=== PATIENT | female | born 1965 | race Two or more races ===

== ENCOUNTER 2018-08-27 07:48 | Emergency (ER) | payer OTHER | END 2018-08-28 00:42 | disposition short-term general hospital (02) | LOC: JER 08-28 00:42 ==

== ENCOUNTER 2019-06-16 16:56 | Inpatient (IN) | payer OTHER ==
--- NOTE | 2019-06-16 20:02 | BHS.RME ---
Substance Use & Tx History - Last Treatment Where was last treatment: Detox CIWA Nausea/Vomitin (vomiting x 3) Muscle Tremors: 4-Moderate,w/Arms Extend Anxiety: 3 Agitation: 0-Normal Activity Paroxysmal Sweats: No Perspiration Orientation: 0-Oriented Tacttile Disturbances: 0-None Auditory Disturbances: 0-None Visual Disturbances: 0-None Headache: 3-Moderate CIWA-Ar Total Score: 13
[2019-06-16 20:41] VITALS: BMI 25.1
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
[2019-06-16] MEDS ORDERED: MAG HYDROX/AL HYDROX/SIMETH 30 ML UNIT-DOSE CUP PO PRN (23:31)
[2019-06-16] MEDS ORDERED: IBUPROFEN 400 MG TABLET (FP) PO PRN (23:31)
[2019-06-16] MEDS ORDERED: NICOTINE POLACRILEX 2 MG GUM BUC PRN (23:31)
[2019-06-16] MEDS ORDERED: MAGNESIUM HYDROX 2400MG/30ML ORAL SUSPENSION 30 ML CUP PO PRN (23:31)
[2019-06-16] MEDS ORDERED: ACETAMINOPHEN 325 MG TABLET (FP) PO PRN ×2 (23:31)
[2019-06-16] MEDS ORDERED: MAGNESIUM CITRATE 300 ML BOTTLE PO PRN (23:31)
[2019-06-16] MEDS ORDERED: ONDANSETRON *ODT* 4 MG TABLET SL ONE (23:31)
[2019-06-16] MEDS ORDERED: MENTHOL/PHENOL 1 EACH UD MM PRN (23:31)
[2019-06-16] MEDS ORDERED: ALBUTEROL SO4 0.083% IH SOL 2.5 MG/3 ML VIAL.NEB. NEB ONE (23:58)
[2019-06-17] MEDS ORDERED: chlordiazePOXIDE HCL 25 MG CAPSULE PO ONE
[2019-06-17] MEDS: ALBUTEROL SO4 2.5/IPRATROPIUM 0.5 INH SOL 3 ML VIAL.NEB. NEB SCH ×3 (00:04→21:22)
[2019-06-17] MEDS: guaiFENesin 200 MG/10 ML 10 ML UNIT-DOSE CUPS PO SCH ×5 (00:16→22:46)
[2019-06-17] MEDS: chlordiazePOXIDE HCL 25 MG CAPSULE PO SCH ×3 (06:07→21:22)
[2019-06-17] MEDS ORDERED: BISMUTH SUBSALICYLATE 262 MG/15 ML BTL PO ONE (07:30)
[2019-06-17] MEDS: AMOX TR/POT CLAV 875MG/125MG TABLETS (FP) PO SCH ×2 (08:02→16:57)
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
[2019-06-17] MEDS: SERTRALINE HCL 50 MG TABLET (FP) PO SCH (10:04)
[2019-06-17] MEDS: NICOTINE 14 MG/24 HOURS TOPICAL PATCH TD SCH (10:05)
[2019-06-17] MEDS: PRENATAL VITAMINS W/ FOLIC ACID TABLET (FP) PO SCH (10:05)
[2019-06-17 10:20] LABS: HEMATOCRIT 40.3 % (32.4-45.2); HEMOGLOBIN 13.4 GM/dL (10.7-15.3); MCH 29.3 pg (25.7-33.7); MCHC 33.2 g/dl (32.0-36.0); MEAN CELL VOLUME 88.3 fl (80-96); MEAN PLT VOLUME 9.2 fl (7.5-11.1); PLATELET COUNT 252 K/MM3 (134-434); RBC 4.57 M/mm3 (3.60-5.2); RDW 14.3 % (11.6-15.6); WHITE BLOOD COUNT 4.7 K/mm3 (4.0-10.0)
[2019-06-17 10:31] LABS: ALBUMIN 3.3 g/dl (3.4-5.0); BILIRUBIN,TOTAL 0.7 mg/dL (0.2-1); BLOOD UREA NITROGEN 17.8 mg/dL (7-18); CALCIUM 8.6 mg/dL (8.5-10.1); CREATININE 0.8 mg/dL (0.55-1.3); POTASSIUM 3.5 mmol/L (3.5-5.1); TOT PROT 7.7 g/dl (6.4-8.2)
--- NOTE | 2019-06-17 10:35 | EKG ---
Test Reason : Blood Pressure : / mmHG Vent. Rate : 098 BPM Atrial Rate : 098 BPM P-R Int : 138 ms QRS Dur : 080 ms QT Int : 364 ms P-R-T Axes : 065 070 064 degrees QTc Int : 464 ms NORMAL SINUS RHYTHM RIGHT ATRIAL ENLARGEMENT NONSPECIFIC ST ABNORMALITY ABNORMAL ECG WHEN COMPARED WITH ECG OF 27-AUG-2018 09:02, NO SIGNIFICANT CHANGE WAS FOUND Confirmed by Ronny Butler MD ([id number]) on 06/17/2019 10:35:16 AM Referred By: Dutch Ruiz Confirmed By:Ronny Butler MD
[2019-06-17] MEDS: ARIPiprazole 5 MG TABLET PO SCH (10:54)
--- NOTE | 2019-06-17 13:29 | PN ---
[facility] CIWA - CIWA Score Nausea/Vomitin-No Nausea/No Vomiting Muscle Tremors: 3 Anxiety: 3 Agitation: 3 Paroxysmal Sweats: 3 Orientation: 0-Oriented Tacttile Disturbances: 0-None Auditory Disturbances: 0-None Visual Disturbances: 0-None Headache: 1-Very Mild CIWA-Ar Total Score: 13 S Progress Note (SOAP) Subjective: sweats shakes interrupted sleep headache nausea Objective: 06/17/19 13:28 Vital Signs Temperature 98.7 F 06/17/19 09:05 Pulse Rate 84 06/17/19 09:05 Respiratory Rate 19 06/17/19 09:05 Blood Pressure 128/84 06/17/19 09:05 O2 Sat by Pulse Oximetry (%) Laboratory Tests 06/16/19 06/17/19 06/17/19 21:41 07:30 07:30 WBC 4.7 RBC 4.57 Hgb 13.4 Hct 40.3 MCV 88.3 MCH 29.3 MCHC 33.2 RDW 14.3 Plt Count 252 MPV 9.2 Sodium 137 Potassium 3.5 Chloride 103 Carbon Dioxide 28 Anion Gap 5 L BUN 17.8 Creatinine 0.8 Est GFR (CKD-EPI)AfAm 97.55 Est GFR (CKD-EPI)NonAf 84.17 Random Glucose 100 Calcium 8.6 Total Bilirubin 0.7 AST 19 ALT 19 Alkaline Phosphatase 73 Total Protein 7.7 Albumin 3.3 L POC Urine HCG, Qual Negative RPR Titer 06/17/19 07:30 WBC RBC Hgb Hct MCV MCH MCHC RDW Plt Count MPV Sodium Potassium Chloride Carbon Dioxide Anion Gap BUN Creatinine Est GFR (CKD-EPI)AfAm Est GFR (CKD-EPI)NonAf Random Glucose Calcium Total Bilirubin AST ALT Alkaline Phosphatase Total Protein Albumin POC Urine HCG, Qual RPR Titer Nonreactive aaox3 ambulating no acute distress Assessment: 06/17/19 13:28 withdrawals Plan: continue detox tylenol/motrin prn zofran sl prn
[2019-06-17] MEDS ORDERED: METHOCARBAMOL 500 MG TABLET PO ONE (15:31)
[2019-06-17] MEDS ORDERED: LOPERAMIDE HCL 2 MG CAPSULE PO PRN (15:32)
[2019-06-17] MEDS: chlordiazePOXIDE HCL 10 MG CAPSULE PO PRN (16:57)
[2019-06-17] MEDS ORDERED: METHOCARBAMOL 500 MG TABLET PO SCH (18:00)
[2019-06-17] MEDS: traZODone HCL 100 MG TABLET (FP) PO SCH (21:22)
[2019-06-17] MEDS: THIAMINE HCL 100 MG TABLET (FP) PO SCH (21:22)
[2019-06-17] MEDS: MELATONIN 5 MG TABLETS PO SCH (22:45)
[2019-06-18] MEDS: chlordiazePOXIDE 5 MG CAPSULE PO SCH ×3 (05:52→22:00)
[2019-06-18] MEDS: guaiFENesin 200 MG/10 ML 10 ML UNIT-DOSE CUPS PO SCH ×4 (05:53→22:58)
[2019-06-18] MEDS: AMOX TR/POT CLAV 875MG/125MG TABLETS (FP) PO SCH ×2 (07:28→17:11)
[2019-06-18] MEDS: ALBUTEROL SO4 2.5/IPRATROPIUM 0.5 INH SOL 3 ML VIAL.NEB. NEB SCH (07:30)
[2019-06-18] MEDS: PRENATAL VITAMINS W/ FOLIC ACID TABLET (FP) PO SCH (10:25)
[2019-06-18] MEDS: NICOTINE 14 MG/24 HOURS TOPICAL PATCH TD SCH (10:26)
[2019-06-18] MEDS: ARIPiprazole 5 MG TABLET PO SCH (10:26)
[2019-06-18] MEDS: SERTRALINE HCL 50 MG TABLET (FP) PO SCH (10:26)
[2019-06-18] MEDS: ALBUTEROL SO4 2.5/IPRATROPIUM 0.5 INH SOL 3 ML VIAL.NEB. NEB PRN ×2 (11:27→21:45)
--- NOTE | 2019-06-18 11:54 | PN ---
S CIWA - CIWA Score Nausea/Vomitin-No Nausea/No Vomiting Muscle Tremors: 3 Anxiety: 2 Agitation: 2 Paroxysmal Sweats: 2 Orientation: 0-Oriented Tacttile Disturbances: 0-None Auditory Disturbances: 0-None Visual Disturbances: 0-None Headache: 0-None Present CIWA-Ar Total Score: 9 BHS Progress Note (SOAP) Subjective: sweats interrupted sleep body aches Objective: 06/18/19 11:53 Vital Signs Temperature 98.2 F 06/18/19 08:41 Pulse Rate 98 H 06/18/19 08:41 Respiratory Rate 18 06/18/19 08:41 Blood Pressure 143/98 06/18/19 08:41 O2 Sat by Pulse Oximetry (%) Laboratory Tests 06/16/19 06/17/19 06/17/19 21:41 07:30 07:30 WBC 4.7 RBC 4.57 Hgb 13.4 Hct 40.3 MCV 88.3 MCH 29.3 MCHC 33.2 RDW 14.3 Plt Count 252 MPV 9.2 Sodium 137 Potassium 3.5 Chloride 103 Carbon Dioxide 28 Anion Gap 5 L BUN 17.8 Creatinine 0.8 Est GFR (CKD-EPI)AfAm 97.55 Est GFR (CKD-EPI)NonAf 84.17 Random Glucose 100 Calcium 8.6 Total Bilirubin 0.7 AST 19 ALT 19 Alkaline Phosphatase 73 Total Protein 7.7 Albumin 3.3 L POC Urine HCG, Qual Negative RPR Titer 06/17/19 07:30 WBC RBC Hgb Hct MCV MCH MCHC RDW Plt Count MPV Sodium Potassium Chloride Carbon Dioxide Anion Gap BUN Creatinine Est GFR (CKD-EPI)AfAm Est GFR (CKD-EPI)NonAf Random Glucose Calcium Total Bilirubin AST ALT Alkaline Phosphatase Total Protein Albumin POC Urine HCG, Qual RPR Titer Nonreactive aaox3 ambulating no acute distress Assessment: 06/18/19 11:53 withdrawals sx Plan: continue detox increase fluids
[2019-06-18] MEDS: chlordiazePOXIDE HCL 10 MG CAPSULE PO PRN (17:11)
[2019-06-18] MEDS: hydrOXYzine PAMOATE 50 MG CAPSULE (FP) PO PRN (20:14)
[2019-06-18] MEDS: traZODone HCL 100 MG TABLET (FP) PO SCH (22:00)
[2019-06-18] MEDS: THIAMINE HCL 100 MG TABLET (FP) PO SCH (22:01)
[2019-06-18] MEDS: METHOCARBAMOL 500 MG TABLET PO PRN (22:06)
[2019-06-18] MEDS: MELATONIN 5 MG TABLETS PO SCH (22:43)
[2019-06-19] MEDS ORDERED: chlordiazePOXIDE HCL 10 MG CAPSULE PO PRN
[2019-06-19] MEDS: chlordiazePOXIDE HCL 10 MG CAPSULE PO SCH ×3 (07:49→21:11)
[2019-06-19] MEDS: AMOX TR/POT CLAV 875MG/125MG TABLETS (FP) PO SCH ×2 (07:50→17:35)
[2019-06-19] MEDS: guaiFENesin 200 MG/10 ML 10 ML UNIT-DOSE CUPS PO SCH ×3 (07:50→18:22)
--- NOTE | 2019-06-19 10:18 | PN ---
S CIWA - CIWA Score Nausea/Vomitin-No Nausea/No Vomiting Muscle Tremors: 2 Anxiety: 1-Mildly Anxious Agitation: 1-Slight > Activity Paroxysmal Sweats: 1-Minimal Palms Moist Orientation: 0-Oriented Tacttile Disturbances: 0-None Auditory Disturbances: 0-None Visual Disturbances: 0-None Headache: 0-None Present CIWA-Ar Total Score: 5 BHS Progress Note (SOAP) Subjective: interrupted sleep Objective: 06/19/19 10:16 Vital Signs Temperature 97.7 F 06/19/19 07:58 Pulse Rate 75 06/19/19 07:58 Respiratory Rate 18 06/19/19 07:58 Blood Pressure 147/77 06/19/19 07:58 O2 Sat by Pulse Oximetry (%) aaox3 ambulating no acute distress Assessment: 06/19/19 10:17 mild withdrawals Plan: continue detox melatonin prn tonight d/c in am
[2019-06-19] MEDS: SERTRALINE HCL 50 MG TABLET (FP) PO SCH (10:24)
[2019-06-19] MEDS: PRENATAL VITAMINS W/ FOLIC ACID TABLET (FP) PO SCH (10:24)
[2019-06-19] MEDS: ARIPiprazole 5 MG TABLET PO SCH (10:25)
[2019-06-19] MEDS: NICOTINE 14 MG/24 HOURS TOPICAL PATCH TD SCH (11:37)
[2019-06-19] MEDS: METHOCARBAMOL 500 MG TABLET PO PRN (20:02)
[2019-06-19] MEDS: ALBUTEROL SO4 2.5/IPRATROPIUM 0.5 INH SOL 3 ML VIAL.NEB. NEB PRN (20:13)
[2019-06-19] MEDS: THIAMINE HCL 100 MG TABLET (FP) PO SCH (22:20)
[2019-06-19] MEDS: traZODone HCL 100 MG TABLET (FP) PO SCH (22:20)
[2019-06-19] MEDS: MELATONIN 5 MG TABLETS PO SCH (22:20)
[2019-06-20] MEDS ORDERED: chlordiazePOXIDE HCL 10 MG CAPSULE PO ONE (05:00)
[2019-06-20] MEDS: AMOX TR/POT CLAV 875MG/125MG TABLETS (FP) PO SCH (07:59)
[2019-06-20] MEDS: hydrOXYzine PAMOATE 50 MG CAPSULE (FP) PO PRN (07:59)
--- NOTE | 2019-06-20 09:23 | DS ---
[facility] Detox Discharge Summary Admission Date: 06/16/19 Discharge Date: 06/20/19 - History Present History: Alcohol Dependence, Cannabis Dependence, Cocaine Dependence, Opioid Dependence - Physical Exam Results Vital Signs: Vital Signs Temperature 97.7 F 06/20/19 06:33 Pulse Rate 66 06/20/19 06:33 Respiratory Rate 16 06/20/19 06:33 Blood Pressure 120/78 06/20/19 06:33 O2 Sat by Pulse Oximetry (%) Pertinent Admission Physical Exam Findings: Vital Signs Temperature 97.7 F 06/20/19 06:33 Pulse Rate 66 06/20/19 06:33 Respiratory Rate 16 06/20/19 06:33 Blood Pressure 120/78 06/20/19 06:33 O2 Sat by Pulse Oximetry (%) Laboratory Tests 06/16/19 06/17/19 06/17/19 21:41 07:30 07:30 WBC 4.7 RBC 4.57 Hgb 13.4 Hct 40.3 MCV 88.3 MCH 29.3 MCHC 33.2 RDW 14.3 Plt Count 252 MPV 9.2 Sodium 137 Potassium 3.5 Chloride 103 Carbon Dioxide 28 Anion Gap 5 L BUN 17.8 Creatinine 0.8 Est GFR (CKD-EPI)AfAm 97.55 Est GFR (CKD-EPI)NonAf 84.17 Random Glucose 100 Calcium 8.6 Total Bilirubin 0.7 AST 19 ALT 19 Alkaline Phosphatase 73 Total Protein 7.7 Albumin 3.3 L POC Urine HCG, Qual Negative RPR Titer 06/17/19 07:30 WBC RBC Hgb Hct MCV MCH MCHC RDW Plt Count MPV Sodium Potassium Chloride Carbon Dioxide Anion Gap BUN Creatinine Est GFR (CKD-EPI)AfAm Est GFR (CKD-EPI)NonAf Random Glucose Calcium Total Bilirubin AST ALT Alkaline Phosphatase Total Protein Albumin POC Urine HCG, Qual RPR Titer Nonreactive aaox3 ambulating no acute distress lungs CTA - Treatment Hospital Course: Detox Protocol Followed, Detoxed Safely, Responded well, Discharged Condition Good, Rehab Referral Accepted - Medication Discharge Medications: Ambulatory Orders Baclofen [Lioresal -] 20 mg PO TID 08/27/18 Omeprazole 40 mg PO DAILY 08/27/18 Aripiprazole [Abilify -] 5 mg PO DAILY 06/16/19 hydrOXYzine PAMOATE [Vistaril -] 50 mg PO TID 06/16/19 propRANOLol HCL [Inderal] 20 mg PO DAILY 06/16/19 traZODone HCL [Trazodone HCl] 100 mg PO HS 06/16/19 - Diagnosis (1) Alcohol dependence with withdrawal, uncomplicated Current Visit: Yes Status: Chronic (2) Cannabis dependence Current Visit: Yes Status: Chronic (3) Cocaine dependence, uncomplicated Current Visit: Yes Status: Chronic (4) Opioid abuse Current Visit: Yes Status: Acute (5) Substance-induced sleep disorder Current Visit: Yes Status: Acute (6) Wheezing on expiration Current Visit: Yes Status: Chronic (7) Bipolar disorder Current Visit: Yes Status: Chronic (8) HTN (hypertension) Current Visit: Yes Status: Chronic Qualifiers: Hypertension type: unspecified Qualified Code(s): I10 - Essential (primary) hypertension (9) Murmur, cardiac Current Visit: Yes Status: Chronic (10) Nicotine dependence Current Visit: Yes Status: Chronic Qualifiers: Nicotine product type: cigarettes Substance use status: uncomplicated Qualified Code(s): F17.210 - Nicotine dependence, cigarettes, uncomplicated (11) Nicotine dependence, unspecified, uncomplicated Current Visit: Yes Status: Chronic Qualifiers: Nicotine product type: cigarettes Qualified Code(s): F17.210 - Nicotine de pendence, cigarettes, uncomplicated (12) History of CVA with residual deficit Current Visit: Yes Status: Resolved (13) History of hand fracture Current Visit: Yes Status: Resolved (14) Depression Current Visit: No Status: Acute Qualifiers: Depression Type: unspecified Qualified Code(s): F32.9 - Major depressive disorder, single episode, unspecified (15) Suicidal ideation Current Visit: No Status: Acute - AMA Did Patient Leave Against Medical Advice: No
[2019-06-20] MEDS: ARIPiprazole 5 MG TABLET PO SCH (10:38)
[2019-06-20] MEDS: PRENATAL VITAMINS W/ FOLIC ACID TABLET (FP) PO SCH (10:38)
[2019-06-20] MEDS: NICOTINE 14 MG/24 HOURS TOPICAL PATCH TD SCH (10:38)
[2019-06-20] MEDS: METHOCARBAMOL 500 MG TABLET PO PRN (10:39)
[2019-06-20] MEDS: SERTRALINE HCL 50 MG TABLET (FP) PO SCH (10:39)
[2019-06-20 11:29] VITALS: BP 121/84; PULSE 87; TEMP 97.3
== END 2019-06-20 16:00 | disposition home or self-care (01) | DRG 897 ==
LOC: YASAS 16:56 → Y6N 22:21
PROVIDERS: ADMIT Allergy & Immunology; ATTEND Allergy & Immunology
PROC: HZ2ZZZZ Detoxification Services for Substance Abuse Treatment (ICD-10-PCS; principal; 2019-06-16)
DX: F10.230 Alcohol dependence with withdrawal, uncomplicated (principal); F11.20 Opioid dependence, uncomplicated; F14.20 Cocaine dependence, uncomplicated; F19.282 Other psychoactive substance dependence with psychoactive substance-induced sleep disorder; F17.210 Nicotine dependence, cigarettes, uncomplicated; F31.9 Bipolar disorder, unspecified; F41.9 Anxiety disorder, unspecified; I10 Essential (primary) hypertension; E78.5 Hyperlipidemia, unspecified; G40.909 Epilepsy, unspecified, not intractable, without status epilepticus; R01.1 Cardiac murmur, unspecified; R00.1 Bradycardia, unspecified; Z86.79 Personal history of other diseases of the circulatory system; Z87.821 Personal history of retained foreign body fully removed; Z86.69 Personal history of other diseases of the nervous system and sense organs; Z59.0 Homelessness; Z91.410 Personal history of adult physical and sexual abuse; Z62.810 Personal history of physical and sexual abuse in childhood; Z88.6 Allergy status to analgesic agent
CPT/HCPCS: 36415; 71046-TC-FY; 80053; 81025; 85027; 86593; 93005; 93010; 94640

== ENCOUNTER 2020-05-07 17:54 | Inpatient (IN) | payer OTHER ==
[2020-05-07 18:57] VITALS: BMI 23.1
[2020-05-07] MEDS ORDERED: cloNIDine HCL 0.1 MG TABLET PO PRN (21:37)
[2020-05-07] MEDS ORDERED: DICYCLOMINE HCL 10 MG CAPSULE PO PRN (21:37)
[2020-05-07] MEDS ORDERED: MAG HYDROX/AL HYDROX/SIMETH 30 ML UNIT-DOSE CUP PO PRN (21:37)
[2020-05-07] MEDS ORDERED: guaiFENesin 200 MG/10 ML 10 ML UNIT-DOSE CUPS PO PRN (21:37)
[2020-05-07] MEDS ORDERED: MAGNESIUM CITRATE 300 ML BOTTLE PO PRN (21:37)
[2020-05-07] MEDS ORDERED: ACETAMINOPHEN 325 MG TABLET (FP) PO PRN (21:37)
[2020-05-07] MEDS ORDERED: BISMUTH SUBSALICYLATE 524 MG/30 ML UD PO PRN (21:37)
[2020-05-07] MEDS ORDERED: NICOTINE POLACRILEX 2 MG GUM BUC PRN (21:37)
[2020-05-07] MEDS ORDERED: METHADONE HCL 10 MG TABLET (FOR DETOX USE ONLY) PO ONE (21:37)
[2020-05-07] MEDS ORDERED: IBUPROFEN 400 MG TABLET (FP) PO PRN (21:37)
[2020-05-07] MEDS ORDERED: hydrOXYzine PAMOATE 25 MG CAPSULE (FP) PO PRN (21:37)
[2020-05-07] MEDS ORDERED: P-EPHED 60MG/TRIPROLIDI 2.5MG TABLET PO PRN (21:37)
[2020-05-07] MEDS ORDERED: NALOXONE HCL 0.4 MG/ML VIAL IM PRN (21:37)
[2020-05-07] MEDS ORDERED: MENTHOL/PHENOL 1 EACH UD MM PRN (21:37)
[2020-05-07] MEDS: THIAMINE HCL 100 MG TABLET (FP) PO SCH (23:43)
[2020-05-07] MEDS: MELATONIN 5 MG TABLETS PO SCH (23:46)
[2020-05-08] MEDS ORDERED: METHADONE HCL 10 MG TABLET (FOR DETOX USE ONLY) ONE (09:00)
[2020-05-08] MEDS ORDERED: METHADONE HCL 5 MG TABLET (FOR DETOX USE ONLY) ONE (09:00)
[2020-05-08] MEDS ORDERED: METHADONE (DETOX) 20 MG, METHADONE (DETOX) 5 MG PO ONE (10:00)
[2020-05-08] MEDS: PRENATAL VITAMINS W/ FOLIC ACID TABLET (FP) PO SCH (10:10)
[2020-05-08] MEDS: NICOTINE 14 MG/24 HOURS TOPICAL PATCH TD SCH (10:12)
[2020-05-08] MEDS ORDERED: PATIENT'S OWN MEDICATION (NON-FORMULARY) (Sertraline Hcl [Sertraline Hcl] 100 MG Tablet) PO SCH (10:30)
[2020-05-08] MEDS: ONDANSETRON *ODT* 4 MG TABLET SL PRN (11:02)
[2020-05-08] MEDS: hydrOXYzine PAMOATE 50 MG CAPSULE (FP) PO PRN ×2 (12:06→22:10)
[2020-05-08] MEDS: SERTRALINE HCL 50 MG TABLET (FP) PO SCH (12:06)
[2020-05-08 13:30] LABS: POTASSIUM 4.6 mmol/L (3.5-5.1)
[2020-05-08 13:32] LABS: ALBUMIN 3.4 g/dl (3.4-5.0); BLOOD UREA NITROGEN 15.3 mg/dL (7-18); CALCIUM 8.9 mg/dL (8.5-10.1)
[2020-05-08 13:33] LABS: HEMATOCRIT 38.5 % (32.4-45.2); HEMOGLOBIN 13.1 GM/dL (10.7-15.3); MCH 31.8 pg (25.7-33.7); MCHC 34.1 g/dl (32.0-36.0); MEAN CELL VOLUME 93.1 fl (80-96); MEAN PLT VOLUME 9.9 fl (7.5-11.1); PLATELET COUNT 261 K/MM3 (134-434); RBC 4.13 M/mm3 (3.60-5.2); RDW 12.8 % (11.6-15.6); WHITE BLOOD COUNT 5.4 K/mm3 (4.0-10.0)
[2020-05-08 13:35] LABS: CREATININE 0.9 mg/dL (0.55-1.3)
[2020-05-08 13:37] LABS: BILIRUBIN,TOTAL 0.2 mg/dL (0.2-1); TOT PROT 6.6 g/dl (6.4-8.2)
[2020-05-08] MEDS: traZODone HCL 150 MG TABLET PO SCH (22:08)
[2020-05-08] MEDS: ARIPiprazole 5 MG TABLET PO SCH (22:08)
[2020-05-08] MEDS: MELATONIN 5 MG TABLETS PO SCH (22:08)
[2020-05-08] MEDS: THIAMINE HCL 100 MG TABLET (FP) PO SCH (22:08)
[2020-05-08 23:07] LABS: URINE APPEARANCE CLEAR; URINE BILIRUBIN NEGATIVE (NEGATIVE); URINE COLOR YELLOW; URINE GLUCOSE (UA) NEGATIVE (NEGATIVE); URINE KETONE NEGATIVE (NEGATIVE); URINE LEUK ESTERASE NEGATIVE (NEGATIVE); URINE NITRITE NEGATIVE (NEGATIVE); URINE PROTEIN NEGATIVE (NEGATIVE); URINE UROBILINOGEN 0.2 mg/dL (0.2-1.0)
[2020-05-09] MEDS: hydrOXYzine PAMOATE 50 MG CAPSULE (FP) PO PRN ×3 (05:57→22:12)
[2020-05-09] MEDS: ONDANSETRON *ODT* 4 MG TABLET SL PRN (09:10)
[2020-05-09] MEDS: NICOTINE 14 MG/24 HOURS TOPICAL PATCH TD SCH (09:47)
[2020-05-09] MEDS: PRENATAL VITAMINS W/ FOLIC ACID TABLET (FP) PO SCH (09:47)
[2020-05-09] MEDS: MONTELUKAST NA 10 MG TABLET PO SCH (09:48)
[2020-05-09] MEDS: SERTRALINE HCL 50 MG TABLET (FP) PO SCH (09:48)
[2020-05-09] MEDS ORDERED: METHADONE HCL 10 MG TABLET (FOR DETOX USE ONLY) PO ONE (10:00)
[2020-05-09] MEDS: METHOCARBAMOL 500 MG TABLET PO PRN (12:52)
[2020-05-09] MEDS: MAGNESIUM HYDROX 2400MG/30ML ORAL SUSPENSION 30 ML CUP PO PRN (17:31)
[2020-05-09] MEDS: traZODone HCL 150 MG TABLET PO SCH (22:10)
[2020-05-09] MEDS: ATORVASTATIN CA 20 MG TABLET (FP) PO SCH (22:10)
[2020-05-09] MEDS: ARIPiprazole 5 MG TABLET PO SCH (22:10)
[2020-05-09] MEDS: THIAMINE HCL 100 MG TABLET (FP) PO SCH (22:10)
[2020-05-09] MEDS: MELATONIN 5 MG TABLETS PO SCH (22:11)
[2020-05-10] MEDS: METHOCARBAMOL 500 MG TABLET PO PRN ×3 (07:28→22:05)
[2020-05-10] MEDS: ACETAMINOPHEN 325 MG TABLET (FP) PO PRN (07:29)
[2020-05-10] MEDS: ALBUTEROL SO4 HFA INHALER IH PRN (08:15)
[2020-05-10] MEDS ORDERED: METHADONE HCL 10 MG TABLET (FOR DETOX USE ONLY) ONE (08:22)
[2020-05-10] MEDS ORDERED: METHADONE HCL 5 MG TABLET (FOR DETOX USE ONLY) ONE (08:23)
[2020-05-10] MEDS: PRENATAL VITAMINS W/ FOLIC ACID TABLET (FP) PO SCH (09:22)
[2020-05-10] MEDS: NICOTINE 14 MG/24 HOURS TOPICAL PATCH TD SCH (09:23)
[2020-05-10] MEDS: SERTRALINE HCL 50 MG TABLET (FP) PO SCH (09:24)
[2020-05-10] MEDS: MONTELUKAST NA 10 MG TABLET PO SCH (09:25)
[2020-05-10] MEDS ORDERED: METHADONE (DETOX) 10 MG, METHADONE (DETOX) 5 MG PO ONE (10:00)
[2020-05-10] MEDS: ONDANSETRON *ODT* 4 MG TABLET SL PRN (10:00)
[2020-05-10] MEDS: hydrOXYzine PAMOATE 50 MG CAPSULE (FP) PO PRN (12:43)
[2020-05-10] MEDS: ARIPiprazole 5 MG TABLET PO SCH (22:02)
[2020-05-10] MEDS: THIAMINE HCL 100 MG TABLET (FP) PO SCH (22:02)
[2020-05-10] MEDS: ATORVASTATIN CA 20 MG TABLET (FP) PO SCH (22:02)
[2020-05-10] MEDS: traZODone HCL 50 MG TABLET (FP) PO SCH (22:03)
[2020-05-10] MEDS: MELATONIN 5 MG TABLETS PO SCH (22:03)
[2020-05-10] MEDS: MAGNESIUM HYDROX 2400MG/30ML ORAL SUSPENSION 30 ML CUP PO PRN (22:05)
[2020-05-11] MEDS: METHOCARBAMOL 500 MG TABLET PO PRN (08:19)
[2020-05-11] MEDS: ACETAMINOPHEN 325 MG TABLET (FP) PO PRN (08:20)
[2020-05-11] MEDS: SERTRALINE HCL 50 MG TABLET (FP) PO SCH (09:25)
[2020-05-11] MEDS: PRENATAL VITAMINS W/ FOLIC ACID TABLET (FP) PO SCH (09:25)
[2020-05-11] MEDS: MONTELUKAST NA 10 MG TABLET PO SCH (09:26)
[2020-05-11] MEDS: NICOTINE 14 MG/24 HOURS TOPICAL PATCH TD SCH (09:26)
[2020-05-11] MEDS: ALBUTEROL SO4 HFA INHALER IH PRN ×2 (09:28→21:33)
[2020-05-11] MEDS ORDERED: METHADONE HCL 10 MG TABLET (FOR DETOX USE ONLY) PO ONE (10:00)
[2020-05-11] MEDS: hydrOXYzine PAMOATE 50 MG CAPSULE (FP) PO PRN ×2 (10:25→17:30)
[2020-05-11] MEDS: METHOCARBAMOL 750 MG TAB PO PRN ×2 (15:30→21:34)
[2020-05-11] MEDS: traZODone HCL 50 MG TABLET (FP) PO SCH (21:30)
[2020-05-11] MEDS: ARIPiprazole 5 MG TABLET PO SCH (21:30)
[2020-05-11] MEDS: ATORVASTATIN CA 20 MG TABLET (FP) PO SCH (21:31)
[2020-05-11] MEDS: MELATONIN 5 MG TABLETS PO SCH (21:31)
[2020-05-11] MEDS: THIAMINE HCL 100 MG TABLET (FP) PO SCH (21:31)
[2020-05-12] MEDS: METHOCARBAMOL 750 MG TAB PO PRN (05:14)
[2020-05-12] MEDS ORDERED: METHADONE HCL 5 MG TABLET (FOR DETOX USE ONLY) PO ONE (06:00)
[2020-05-12] MEDS: PRENATAL VITAMINS W/ FOLIC ACID TABLET (FP) PO SCH (09:11)
[2020-05-12] MEDS: SERTRALINE HCL 50 MG TABLET (FP) PO SCH (09:11)
[2020-05-12] MEDS: MONTELUKAST NA 10 MG TABLET PO SCH (09:12)
[2020-05-12] MEDS: NICOTINE 14 MG/24 HOURS TOPICAL PATCH TD SCH (09:12)
[2020-05-12 09:26] VITALS: BP 116/86; PULSE 63; TEMP 97.3
== END 2020-05-12 09:15 | disposition home or self-care (01) | DRG 897 ==
LOC: YASAS 17:54 → Y3N 22:51
PROVIDERS: ADMIT Allergy & Immunology; ATTEND Allergy & Immunology
PROC: HZ2ZZZZ Detoxification Services for Substance Abuse Treatment (ICD-10-PCS; principal; 2020-05-07)
DX: F11.23 Opioid dependence with withdrawal (principal); F14.20 Cocaine dependence, uncomplicated; F19.282 Other psychoactive substance dependence with psychoactive substance-induced sleep disorder; F10.20 Alcohol dependence, uncomplicated; F12.20 Cannabis dependence, uncomplicated; F17.210 Nicotine dependence, cigarettes, uncomplicated; F19.24 Other psychoactive substance dependence with psychoactive substance-induced mood disorder; F41.1 Generalized anxiety disorder; F31.9 Bipolar disorder, unspecified; F43.10 Post-traumatic stress disorder, unspecified; F60.9 Personality disorder, unspecified; G40.909 Epilepsy, unspecified, not intractable, without status epilepticus; E78.5 Hyperlipidemia, unspecified; I10 Essential (primary) hypertension; J45.20 Mild intermittent asthma, uncomplicated; M19.90 Unspecified osteoarthritis, unspecified site; K00.0 Anodontia; R29.6 Repeated falls; R01.1 Cardiac murmur, unspecified; Z62.810 Personal history of physical and sexual abuse in childhood; I69.898 Other sequelae of other cerebrovascular disease; Z86.69 Personal history of other diseases of the nervous system and sense organs; Z87.81 Personal history of (healed) traumatic fracture; Z86.11 Personal history of tuberculosis; Z88.6 Allergy status to analgesic agent; Z56.0 Unemployment, unspecified; Z59.0 Homelessness
CPT/HCPCS: 36415; 80053; 81003; 81025; 85027; 86780; 87389; C9803; J0735; Q0162; U0003